=== PATIENT | male | born 1970 | race Caucasian/White ===

== ENCOUNTER 2017-01-23 18:05 | Inpatient (IN) | payer OTHER ==
--- NOTE | ~2017-01-23 | PA ---
Unit #: [id number] #: [id number] Patient: HOLLIS CAMARGO [id number] [place] [address] [id number] I MR#: [id number] NAME: HOLLIS CAMARGO ROOM: P186 Age: 46 Sex: M Admission Date: 01/23/2017 : 1970 Date of Assessment: 01/24/2017 Attending Physician: Vincent eMrritt M.D. Admitting Physician: Vincent Merritt M.D. Primary Care Physician: Primary Care Physician No PSYCHIATRIC ASSESSMENT LOCATION [facility], room #186, bed #2. INFORMANT This patient and chart both reliable. CHIEF COMPLAINT "I've to stop using heroin." HISTORY OF PRESENT ILLNESS This is a 46-year-old white male with a longstanding history of opioid dependency with doing IV heroin 2 to 3 g a day every day for the last year at least with oral opiate pills before that with indeterminate time and amount. The patient has never been through significant detox symptoms before. He has never been in treatment before. The patient's motivation now for treatment is feeling sick all the time and recognizing that his addiction is only getting worse. His support is limited, but does include his sibling and other family. He denies any active emotional issues in terms of suicidal ideations or severe depression at this moment, but he has had problems with depression in the past. Overall, the patient seems motivated for treatment at this time, complaining of symptoms of poor energy, limited sleep, GI disturbance, mild tremors, and some diaphoresis. No vomiting or diarrhea yet. No significant GI cramping yet. PAST PSYCHIATRIC HISTORY Distant history over 25 years ago, being admitted to psychiatric hospital in [place] for depression, but no history of SI, HI, or psychosis lately. No history of outpatient treatment since then. FAMILY HISTORY Noncontributory. SOCIAL HISTORY The patient is single. No children. He is retired on disability from head injury from [employer]. Some support to family in terms of his siblings. The patient smokes approximately a pack a day or more, but decline nicotine patch today. MEDICAL HISTORY Significant for hypertension and diabetes. MEDICATION HISTORY Include metoprolol and insulin type, frequency undetermined yet. The Unit #: [id number] #: [id number] Patient: HOLLIS CAMARGO patient has not been compliant with them. ALLERGIES Includes iodine contrast media. SUBSTANCE ABUSE HISTORY As noted above. No previous treatments. No history of medical detox. The patient denies any regular substances of abuse. MENTAL STATUS EXAMINATION General appearance; he is a limitedly groomed white male, appears older than stated age, unshaven, fairly cooperative, responsive to the interview process, mild tremor of hands noted, some diaphoresis also present. Speech was clear and coherent. Mood was dysphoric with a constricted affect. Thought process and content were grossly organized and linear. No active evidence of SI or HI or psychosis. The patient's memory was grossly intact. He is alert and oriented x4. Cognitive function was at baseline. Associations were normal. Insight and judgment are limited regarding substance use. ASSETS AND LIABILITIES Assets include support through sibling and disability established for head injury. Liabilities include limited overall support, ongoing substance abuse. No previous exposure to the treatment. ADMITTING DIAGNOSES 1. Opioid dependency with withdrawal. 2. Hypertension. 3. Diabetes. PSYCHIATRIC PLAN To have the patient admitted for safety and stabilization. The patient will be seen by Medical Services to evaluate of medical care. He has been maintained on his home doses of metoprolol and currently on sliding scale insulin regimen until such time as his outpatient regimen can be better investigated and Medical Services determine necessity. Admit that the patient will also be put on opioid withdrawal and monitored appropriately. Treatment goals being resolution of all symptoms in safe controlled environment with discharge planning most likely requiring local community resources if at all possible for this individual for outpatient followup. ESTIMATED LENGTH OF STAY Approximately 5 days. Dictated by... Vincent Merritt M.D. NATHALIE/gabe TD: 01/24/2017 11:16 JOB #: [id number] Unit #: [id number] #: [id number] Patient: HOLLIS CAMARGO PSYCHIATRIC ASSESSMENT Page 1 of 1 X Vincent Merritt MD X PSYCHIATRIC ASSESSMENT
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
--- NOTE | ~2017-01-23 | DS ---
Unit #: [id number] #: [id number] Patient: HOLLIS CAMARGO [id number] [place] [address] [id number] MR#: [id number] NAME: HOLLIS CAMARGO ROOM: [facility] Age: 46 Sex: M Admission Date: 01/23/2017 : 1970 Discharge Date: 01/24/2017 Attending Physician: Vincent Merritt M.D. Primary Care Physician: Primary Care Physician No DISCHARGE SUMMARY REASON FOR ADMISSION Heroin dependency and detox. DIAGNOSTIC STUDIES Pertinent laboratory data, included a CMP that showed an elevated glucose of 11, alkaline phosphatase of 100, otherwise remaining findings were normal in that test. The patient had plenty of glucose checks done and they were elevated but they were noted to be last at 125 before discharge. CBC performed was within normal parameters with the exception of MCV, regular and slightly low at 81.6, MCH of 26.7, RDW 15.7, platelets low at 137, otherwise normal. Urine toxicology was positive for marijuana and opiates in keeping with the patient's history. Urinalysis showed 250 glucose, 0.2 urobilinogen, otherwise negative. HOSPITAL COURSE The patient was admitted for safety and stabilization, issues with opiate detox, the patient has a long-standing history of escalating heroin use and opiate dependency prior to that. The patient was reporting issues with upset stomach, aches, pains, fatigue, some depression and anxiety, et cetera, and was placed on appropriate detox protocol. He was also attempted to be maintained on his home medications for diabetes and high blood pressure. The patient reportedly also had a history of hepatitis C but wasn't currently in treatment. The patient was maintained on his high blood pressure medication but we could not confirm his outpatient insulin regimen so he was placed on sliding scale. Overall, the patient on the day of evaluation, on the , he also reported later in the day that he wanted to leave. He told the staff "detox wasn't for him." There was no SI or HI or anything of that nature and he had been pleasant and compliant as the patient was no longer wanting treatment even though it was felt that he would benefit from it, he was allowed to be discharged home. No additional changes were made in his medications prior to discharge. The patient denied any other acute symptoms or issues or complaints prior to discharge according to staff. DISCHARGE DIAGNOSES Salvo I Opiate dependency with withdrawal. Salvo II Salvo III Hypertension. Diabetes. Hepatitis C by history. Salvo IV Salvo V Unit #: [id number] #: [id number] Patient: HOLLIS CAMARGO DISCHARGE CARE The patient is to go home with family with community resource information will be provided to him. DISCHARGE MEDICATIONS Discharge medications included his home dose of Lopressor 25 mg twice a day CONDITION AT DISCHARGE Condition at discharge is relatively unchanged. PROGNOSIS Prognosis is poor given the patient's poor insight into the gravity of the situation. DIET AND ACTIVITY Diet is heart healthy, no concentrated sweets. Activity is as tolerated with sobriety encouraged in compliance with aftercare recommendations. Dictated by... Jazmine Paez/hector TD: 01/25/2017 10:24 JOB #: [id number] DISCHARGE SUMMARY Page 1 of 1 X Vincent Merritt MD X DISCHARGE SUMMARY
[2017-01-24 09:32] LABS: BASOPHIL% 0.5 % (0-2.5); EOSINOPHIL# 0.4 X10e3 (0-0.7); HEMATOCRIT 40.6 % (38.0-50.0); HEMOGLOBIN 13.3 gm/dL (13.0-16.0); LYMPHOCYTE# 1.6 X10e3 (1.0-3.5); LYMPHOCYTE% 27.4 % (17.0-45.0); MEAN CELL VOLUME 81.6 FL (83-96); MEAN CORPUSCULAR HEMOGLOBIN 26.7 PG (28-34); MEAN CORPUSCULAR HGB CONC 32.8 g/dL (30-36); MEAN PLATELET VOLUME 8.5 FL (6.5-11.5); MONOCYTE# 0.4 X10e3 (0-1.0); NEUTROPHIL# 3.5 X10e3 (1.5-7.1); NEUTROPHIL% 59.1 % (40-75); PLATELET COUNT 137 X10e3 (140-420); RED BLOOD COUNT 4.98 X10e (3.90-5.60); RED CELL DISTRIBUTION WIDTH 15.7 % (11.0-15.5)
[2017-01-24 09:41] LABS: URINE APPEARANCE CLEAR; URINE BILIRUBIN NEG (NEG); URINE BLOOD NEG (NEG); URINE COLOR YELLOW; URINE GLUCOSE 250 MG/DL (NEG); URINE KETONE NEG (NEG); URINE LEUKOCYTE ESTERASE NEG (NEG); URINE NITRATE NEG (NEG); URINE PH 6.5 (5-8); URINE PROTEIN NEG (NEG); URINE SPECIFIC GRAVITY 1.023 (1.003-1.035); URINE UROBILINOGEN 0.2 MG/DL (NEG)
[2017-01-24 09:51] LABS: DIFF IND NO
[2017-01-24 09:57] LABS: ALBUMIN SERUM 3.5 g/dL (3.5-5.0); BILIRUBIN,TOTAL 0.5 mg/dL (0.2-2.0); BUN/CREATININE RATIO 28.57; CREATININE SERUM 0.7 mg/dL (0.6-1.4); GLOM FILT RATE Estimated 111.6 mL/min (>60); PROTEIN TOTAL SERUM 6.4 g/dL (6.0-8.3)
[2017-01-24 10:07] LABS: AMPHETAMINE NEG (NEG); BARBITURATES NEG (NEG); BENZODIAZEPINES NEG (NEG); COCAINE NEG (NEG); MARIJUANA POS (NEG); OPIATES POS (NEG); TRICYCLIC ANTIDEPRESSANTS NEG (NEG); U METHADONE NEG (NEG)
== END 2017-01-24 16:45 | disposition home or self-care (01) | DRG 897 ==
LOC: POF 18:05 → P1E 18:11
PROVIDERS: Psychiatry & Neurology Psychiatry
PROC: HZ2ZZZZ Detoxification Services for Substance Abuse Treatment (ICD-10-PCS; principal; 2017-01-23)
DX: F11.23 Opioid dependence with withdrawal (principal); I10 Essential (primary) hypertension; E11.9 Type 2 diabetes mellitus without complications; F17.210 Nicotine dependence, cigarettes, uncomplicated
CPT/HCPCS: 80053; 80307; 81003; 82947; 85025; 86592